=== PATIENT | female | born 1955 | race Caucasian/White ===

== ENCOUNTER → 2016-09-14 | Outpatient (CLI) | payer BC, OTHER ==
[2016-09-14 13:05] LABS: Blood Urea Nitrogen 12 mg/dL (7-17); Non-African American GFR(MDRD) >60 (>60 ml/min/1.73 sqM)
--- NOTE | 2016-09-14 14:27 | XR ---
EXAMINATION TYPE: XR chest 2V DATE OF EXAM: 09/14/2016 COMPARISON: CT abdomen pelvis same date HISTORY: Bladder carcinoma TECHNIQUE: Frontal and lateral views of the chest are obtained. FINDINGS: There is no pleural effusion, or pneumothorax seen. The cardiac silhouette size is small. Prominent lung volumes suggests underlying COPD. Biapical pleural thickening is present. Patient is rotated. Difficult to exclude retrocardiac density. The aorta is dense. The osseous structures are i ntact. IMPRESSION: Rotated exam, probable lower lobe atelectasis
--- NOTE | 2016-09-14 16:12 | CT ---
EXAMINATION TYPE: CT abdomen pelvis w con DATE OF EXAM: 09/14/2016 COMPARISON: 02/15/2016 HISTORY: 61-year-old female f/u for bladder ca, bladder removed 1 year ago TECHNIQUE: Contiguous axial scanning of the abdomen and pelvis following administration of 100 ml Omn ipaque 300 IV contrast. Delayed images through the kidneys and coronal/sagittal reconstructions perf ormed. CT DLP: 229.2 mGycm Automated exposure control for dose reduction was used. FINDINGS: Heart is normal size without pericardial effusion. Strandy atelectasis at the posteromedial left lung base. No pleural effusion. A 5 mm left basilar pulmonary nodule, axially and image 11. This appears unchanged from 02/15/2016. Small hiatal hernia. Stable 1 cm calcification right hepatic dome. Small amount of focal fat along the anterior falciform ligament. Otherwise, no focal liver lesion. Cholecystectomy clips are present. Portal venous system is patent. No biliary ductal dilatation. Adrenal glands, kidneys, spleen, and pancreas appear within normal limits. There is some mesh repair along the epigastric region with a redemonstrated 1.8 cm small omental fat- containing hernia along the right lateral margin of the mesh, axial image 30. Diverticular ostomies are also present along the right mid abdomen with a new fat-containing parastom al hernia is, superiorly measuring 2.7 cm wide and inferiorly measuring 2.5 cm wide. Surgical clips along the iliac chains. No dilated small bowel, free fluid, or free air. No mesenteric or retroperitoneal lymphadenopathy. Moderate arthroscopic calcifications within the abdominal aorta and iliac arteries. Bladder surgically absent. Uterus is also surgically absent. Neither ovary is seen and could be surgi mariama absent or obscured by adjacent bowel loops. No pelvic lymphadenopathy or mass seen. Bones: No osseous destructive process. IMPRESSION: 1. STATUS POST CYSTECTOMY with right mid abdominal urinary diversion/ileal conduit. There is no hydro nephrosis or evidence for urinary obstruction. 2. A 5 mm left basilar pulmonary nodule, stable from 02/15/2016. Continued follow-up recommended recom mended 3. Otherwise, no evidence for locoregional recurrence or metastatic disease.
== END | disposition home or self-care (01) ==
LOC: RADCTMAIN 12:05
PROVIDERS: ATTEND Urology
DX: C67.9 Malignant neoplasm of bladder, unspecified (principal); Z90.49 Acquired absence of other specified parts of digestive tract
CPT/HCPCS: 82565; 84520; 71020; 74177; 36415; Q9967

== ENCOUNTER → 2018-01-28 | Outpatient (CLI) | payer BC ==
[2018-01-28 07:22] LABS: ALT 40 U/L (9-52); AST 21 U/L (14-36); Albumin 4.5 g/dL (3.5-5.0); Alkaline Phosphatase 192 U/L (38-126); Anion Gap 9 mmol/L; Blood Urea Nitrogen 14 mg/dL (7-17); Calcium 9.7 mg/dL (8.4-10.2); Carbon Dioxide 27 mmol/L (22-30); Chloride 107 mmol/L (98-107); Glucose 96 mg/dL (74-99); Potassium 4.4 mmol/L (3.5-5.1); Sodium 143 mmol/L (137-145); Total Bilirubin 0.3 mg/dL (0.2-1.3); Total Protein 7.7 g/dL (6.3-8.2)
--- NOTE | 2018-01-28 09:02 | CT ---
EXAMINATION TYPE: CT abdomen pelvis w con DATE OF EXAM: 01/28/2018 HISTORY: Bladder CA follow up CT DLP: 409mGycm Automated Exposure Control for Dose Reduction was Utilized. CONTRAST: CT scan of the abdomen and pelvis is performed with IV Contrast, patient injected with 100 mL of Isov ue 300. COMPARISON: 02/15/2016 and 09/14/2016 FINDINGS: LUNG BASES: There is a 5 mm pulmonary nodule at the left lung base on image 8. Right lower lobe bleb is incidentally seen. LIVER/GB: Granulomas noted near the hepatic dome in segment IVb of the liver there is a focal wedge-s haped area of hypoattenuation along the fissure for the falciform ligament, most commonly related to focal fatty infiltration. No other hepatic lesions are appreciated. Gallbladder surgically absent. PANCREAS: No significant abnormality is seen. SPLEEN: No significant abnormality is seen. ADRENALS: No significant abnormality is seen. KIDNEYS: Urinary bladder is been surgically removed. Surgical clips are seen within the pelvis and ar ound the anastomotic site from the ureters to the ileal conduit pouch. Distal ileum is decompressed a nd exits the right mid abdominal ostomy without obstruction. No surrounding fluid collection is seen to suggest urinoma or extravasation. No pneumoperitoneum. Minimal right-sided hydroureteronephrosis i s present. Left extrarenal pelvis is seen with no hydronephrosis. Again there is a fat-containing par astomal hernia also containing mesenteric vasculature versus enlarged from the prior now measuring 4. 6 cm and previously measuring 2.5 cm Kidneys enhance and excrete symmetrically. No focal renal lesion is appreciated. BOWEL: No significant abnormality is seen. No dilated large or small bowel. LYMPH NODES: No greater than 1cm abdominal or pelvic lymph nodes are appreciated. OSSEOUS STRUCTURES: No significant abnormality is seen. IMPRESSION: 1. No new findings to suggest metastasis within the abdomen or pelvis or local recurrence. No new burke nopathy. 2. Increased size of the fat and mesenteric vasculature containing parastomal hernia. 3. Stable size of the 5 mm left basilar pulmonary nodule dating back to 2015.
--- NOTE | 2018-01-28 09:29 | XR ---
EXAMINATION TYPE: XR chest 2V DATE OF EXAM: 01/28/2018 COMPARISON: 09/14/2016 TECHNIQUE: PA and lateral views submitted. HISTORY: Bladder cancer FINDINGS: The lungs are clear and there is no pneumothorax, pleural effusion, or focal pneumonia. Hyperinflat ion suggests COPD. Biapical pleural thickening. Hypertrophic change of the spine. Surgical clips in t he abdomen. IMPRESSION: 1. No acute process.
== END ==
LOC: RADCTMAIN 06:30
PROVIDERS: ATTEND Urology
DX: K43.5 Parastomal hernia without obstruction or gangrene (principal); C67.9 Malignant neoplasm of bladder, unspecified
CPT/HCPCS: 80053; 71046; 74177; 36415; Q9967

== ENCOUNTER → 2018-12-27 | Outpatient (CLI) | payer BC ==
--- NOTE | 2018-12-27 09:33 | XR ---
EXAMINATION TYPE: XR chest 2V DATE OF EXAM: 12/27/2018 COMPARISON: 01/28/2018 HISTORY: Shortness of breath TECHNIQUE: Frontal and lateral views of the chest are obtained. FINDINGS: Scattered senescent parenchymal changes noted. Hyperinflation compatible with COPD. No evidence for infiltrate. No evidence for atelectasis. There is a new right upper lobe pulmonary nodule measuring 1.[address] of the chest is recommended for further evaluation to exclude prostatic disease. Heart size is stable. Mediastinal structures are stable and grossly unremarkable. No evidence for hilar prominence. Degenerative changes dorsal spine. IMPRESSION: 1. There is a new right upper lobe pulmonary nodule measuring 1.[address] of the chest is recommended for further evaluation to exclude prostatic disease.
[2018-12-27 10:03] LABS: African American GFR (CKD) >90 (>60 ml/min/1.73 sqM); Blood Urea Nitrogen 13 mg/dL (7-17)
--- NOTE | 2018-12-27 11:27 | CT ---
EXAMINATION TYPE: CT abdomen pelvis w con DATE OF EXAM: 12/27/2018 COMPARISON: 01/28/2018 HISTORY: Follow up per patient CT DLP: 426.2 mGycm CONTRAST: CT scan of the abdomen and pelvis is performed with Oral Contrast and with IV Contrast, patient injec scottie with 100 mL of Isovue 300. FINDINGS: LUNG BASES-: Stable 4 mm left basilar pulmonary nodule unchanged since 2016. No infiltrate. LIVER/GB: Cholecystectomy clips are in place. No space occupying hepatic lesion. Biliary tree is o f normal caliber. PANCREAS: No inflammation. No distinct mass. SPLEEN: No splenic enlargement. No lesion seen. ADRENALS: No nodule. No thickening. KIDNEYS/BLADDER: No hydronephrosis. No nephrolithiasis. No distinct renal mass. Cystectomy changes are noted. Ileal conduit is identified with the ostomy noted. No evidence for hydronephrosis or obst ructive change. BOWEL: Normal appendix. Normal bowel caliber. No inflammation. GENITAL ORGANS: No gross abnormality. LYMPH NODES: No greater than 1cm abdominal or pelvic lymph nodes are appreciated. AORTA: No significant abnormality. OSSEOUS STRUCTURES: No significant abnormality is seen. OTHER: No significant additional abnormality is seen. IMPRESSION: 1. No evidence for metastatic disease at this time. 2. Stable 4 mm left basilar pulmonary nodule unchanged since 2016.
== END | disposition home or self-care (01) ==
LOC: RADCTMAIN 09:02
PROVIDERS: ATTEND Urology
DX: R91.1 Solitary pulmonary nodule (principal); C67.9 Malignant neoplasm of bladder, unspecified; Z88.0 Allergy status to penicillin
CPT/HCPCS: 82565; 84520; 71046; 74177; 36415; Q9967

== ENCOUNTER → 2019-01-04 | Outpatient (CLI) | payer BC ==
--- NOTE | 2019-01-05 08:52 | CT ---
EXAMINATION TYPE: CT chest w con DATE OF EXAM: 01/04/2019 COMPARISON: Chest x-ray 12/27/2018 HISTORY: lung nodule, bladder cancer C 67.9 CT DLP: 103.3 mGycm, Automated exposure control for dose reduction was used. CONTRAST: Performed injected with 100 mL of Isovue 300. TECHNIQUE: Axial images were obtained at 5 mm thick sections. Reconstructed images are reviewed on [employer] computer in the coronal plane. FINDINGS: Portion of the thyroid visualized is normal. Moderate emphysematous changes are present. There is a nodule within the periphery of the right midlung measuring 1.4 cm in diameter. Series 4 im age 33. This has irregular borders and is suspicious for neoplasm. This potentially has central cavit ation. No enlarged mediastinal or hilar adenopathy is evident. The ascending aorta diameter at the level o f the main pulmonary artery is 2.8 cm. The main pulmonary artery diameter at the bifurcation is 0.[address] sections are obtained through the upper abdomen. There is calcification within the right l obe liver. IMPRESSIONS: 1. Solitary suspicious nodule right midlung. Workup for metastatic or primary neoplasm is recommended .
== END | disposition home or self-care (01) ==
LOC: RADCTMAIN 08:15
PROVIDERS: ATTEND Urology
DX: C67.9 Malignant neoplasm of bladder, unspecified (principal); Z88.0 Allergy status to penicillin; Z88.5 Allergy status to narcotic agent
CPT/HCPCS: 71260; Q9967

== ENCOUNTER → 2019-01-18 | Outpatient (CLI) | payer BC ==
--- NOTE | 2019-01-20 06:42 | PE ---
EXAMINATION TYPE: PET CT fusion skull to thigh DATE OF EXAM: 01/18/2019 COMPARISON: Chest CT January 04, 2019. CT abdomen and pelvis December 27, 2018 and older CTs HISTORY: History of bladder cancer treated 2016 presents with new lung mass. TECHNIQUE: Following the intravenous administration of 10.07 mCi of F-18 FDG, whole body images are performed from the skull base to the midthigh. Images are reviewed on the computer in the coronal, a xial, and sagittal planes. Reconstructed rotating images are created on independent workstation and reviewed on the computer. A noncontrast CT is performed in conjunction with the PET scan. SCAN: Initial Scan FINDINGS: SKULL BASE AND NECK: No areas of suspicious hypermetabolic uptake. CHEST, MEDIASTINUM, AND HILAR REGION: Background fairly moderate underlying emphysematous change rede monstrated most prominent involving the bilateral upper lobes. Redemonstration of thick-walled cavita ry lesion right mid lung anteriorly measuring 1.1 cm axial image 104 not significantly changed from p rior study with hypermetabolic uptake, max SUV is 3.75. No additional areas of suspicious hypermetabo lic uptake are present. ABDOMEN AND PELVIS: Normal excretion is seen. Diffuse right-sided bowel uptake through level of right lower quadrant ostomy noted. Focus of hypermetabolic uptake axial image 234 at level of rectum, where there is prominent soft tiss ue either on basis of mass versus poor distention, max SUV is 7.08. No areas of abnormal hypermetabol ic uptake are otherwise seen. OSSEOUS STRUCTURES: No areas of suspicious hypermetabolic uptake. OTHER CT: Coronary artery calcifications are present which is noted marked underlying coronary artery disease. Single focal calcification right hepatic dome image 131. Cholecystectomy clips. Moderate calcified pl aque of the aorta extends into iliac branch vessels. Surgical clips along the iliac chains bilaterall y. Bladder is surgically absent. IMPRESSION: Some hypermetabolic uptake in 1.1 cm cavitary right mid lung nodule worrisome for neoplas m. Hypermetabolic uptake at level of rectum cannot exclude neoplasm at this level. Correlation with p hysical exam and colonoscopy advised.
== END | disposition home or self-care (01) ==
LOC: RADPETMAIN 09:38
PROVIDERS: ATTEND Internal Medicine Critical Care Medicine
DX: R91.1 Solitary pulmonary nodule (principal)
CPT/HCPCS: 78815; A9552

== ENCOUNTER → 2019-02-13 | Outpatient (CLI) | payer BC | END | disposition home or self-care (01) | LOC: LABPAT 12:15 | PROVIDERS: ATTEND Thoracic Surgery (Cardiothoracic Vascular Surgery) | DX: Z53.9 Procedure and treatment not carried out, unspecified reason (principal) ==

== ENCOUNTER → 2019-02-19 | Outpatient (CLI) | payer BC ==
[2019-02-19 12:26] LABS: INR 0.9 (<1.2); Prothrombin Time 9.5 sec (9.0-12.0)
[2019-02-19 12:37] LABS: African American GFR (CKD) >90 (>60 ml/min/1.73 sqM); Anion Gap 7 mmol/L; Blood Urea Nitrogen 12 mg/dL (7-17); Carbon Dioxide 26 mmol/L (22-30); Chloride 105 mmol/L (98-107); Glucose 90 mg/dL (74-99); Potassium 4.7 mmol/L (3.5-5.1); Sodium 138 mmol/L (137-145)
[2019-02-19 12:43] LABS: Basophils % (A) 1 %; Eosinophils # (A) 0.1 k/uL (0-0.7); Eosinophils % (A) 1 %; HGB 13.1 gm/dL (11.4-16.0); Lymphocytes # (A) 1.6 k/uL (1.0-4.8); Lymphocytes % (A) 32 %; MCH 32.5 pg (25.0-35.0); MCHC 33.6 g/dL (31.0-37.0); Mean Platelet Volume 5.9; Monocytes # (A) 0.2 k/uL (0-1.0); Monocytes % (A) 4 %; Neutrophils # (A) 3.1 k/uL (1.3-7.7); Neutrophils % (A) 61 %; Platelet Count 263 k/uL (150-450); RBC 4.03 m/uL (3.80-5.40); RDW 13.6 % (11.5-15.5); WBC 5.1 k/uL (3.8-10.6)
[2019-02-19 12:47] LABS: MCV 96.9 fL (80.0-100.0)
== END | disposition home or self-care (01) ==
LOC: LABPAT 11:28
PROVIDERS: ATTEND Thoracic Surgery (Cardiothoracic Vascular Surgery)
DX: Z01.812 Encounter for preprocedural laboratory examination (principal); R91.1 Solitary pulmonary nodule
CPT/HCPCS: 80051; 82565; 82947; 84520; 85025; 85610; 85730

== ENCOUNTER 2019-02-27 07:30 | Inpatient (IN) | payer BC ==
[2019-02-26 10:10] VITALS: BMI 19.3
[~2019-02-27 07:30] MED LIST: DEXAMETHASONE SOD PHOSPHATE 10 MG/ML 1 ML VIAL IV ONE; LACTATED RINGERS 1,000 ML IV SCH; LIDOCAINE 1% 20 ML VIAL (10MG/ML) FOR IV START INTRADERMA PRN; MIDAZOLAM 2 MG/2 ML VIAL IV PRN; Pre Op ABX Message 1 EACH MISC MISCELLANE ONE
[2019-02-27] MEDS ORDERED: ONDANSETRON 4 MG/2 ML VIAL IVP ONE (08:28)
[2019-02-27] MEDS: fentaNYL (PF) 50 MCG/ML 2 ML AMP IVP PRN ×3 (08:53→09:06)
[2019-02-27] MEDS: CLINDAMYCIN 600 MG in DEXTROSE 5% IN WATER 50 ML IVPB STA ×4 (09:19→09:51)
[2019-02-27] MEDS ORDERED: BUPIVACAINE (PF) 0.5% 30 ML VIAL SQ ONE ×2 (09:52)
[2019-02-27] MEDS ORDERED: ROCURONIUM BROMIDE 10 MG/ML 10 ML VIAL IV ONE (10:14)
[2019-02-27] MEDS ORDERED: GLYCOPYRROLATE 0.2 MG/ML 2 ML VIAL ONE (10:14)
[2019-02-27] MEDS ORDERED: SUCCINYLCHOLINE CHLORIDE 100 MG/5 ML SYR IV ONE (10:14)
[2019-02-27] MEDS ORDERED: PROPOFOL 10 MG/ML 20 ML VIAL IV ONE (10:14)
[2019-02-27] MEDS ORDERED: NEOSTIGMINE 1 MG/ML 10 ML VIAL ONE (10:14)
[2019-02-27] MEDS ORDERED: LIDOCAINE 1% INJ 10MG/ML (20 ML MDV) ONE (10:14)
[2019-02-27] MEDS ORDERED: diphenhydrAMINE 50 MG/ML 1 ML VIAL IVP STA (10:35)
--- NOTE | 2019-02-27 10:36 | P.OP ---
Date of Procedure: 02/27/19 Preoperative Diagnosis: Mass right middle lobe Postoperative Diagnosis: Same Procedure(s) Performed: Thoracoscopic wedge resection mass right middle lobe Anesthesia: CARLOS Surgeon: Balaji Ordonez Animal Care Attendant #1: Trevon Richards Estimated Blood Loss (ml): 5 IV fluids (ml): 200 Pathology: other (Wedge resection for culture and pathology) Condition: stable Disposition: PACU Indications for Procedure: 63-year-old female with history of bladder cancer and cervical cancer presents with a new mass in the right middle lobe. She also has a history of rheumatoid arthritis. This mass is increased slightly over serial CT scans. She is ref erred for resection for diagnosis. Needle biopsy was nondiagnostic. Operative Findings: Proximally 1 cm mass fairly deep in the right middle lobe lateral segment. Generous wedge resection was performed. Specimen was cut on the back table. Portion was sent for tissue culture and the remainder for path. Description of Procedure: The patient was brought to the operating room, placed supine on the operating table, anesthetized and intubated with a double-lumen endotracheal tube. Tube was positioned with fiberoptic bronchoscopy. The tube was secured and the patient turned in the left lateral decubitus position. The right chest sterilely prepped and draped. 3 one-inch incisions were made in the right chest carried into the pleural space. The right lung was deflated. Right middle lobe was palpated and we could palpate the mass fairly deep in the lateral segment of the middle lobe. A generous wedge resection was performed with multiple firings of Endo SYLVAIN stapler. Great care was taken to be deep to the mass. On completing the wedge resection specimen was placed in an Endo Catch bag and brought onto the table. It was cut on the back table and the mass was noted and was distant from the staple line. A small portion was sent for culture and the remainder for pathology. Attention was redirected to the chest. Staple line w as intact. 28-Kosovan chest tube was placed through separate stab incision anteriorly and positioned posterior apically. The lung was reinflated under thoracoscopic vision. Rib blocks were performed at the level of the incisions posteriorly with half percent Marcaine. Incisions were closed with layers of Vicryl. Skin glue and dry sterile dressings were applied. On removing the drapes it was noted that the skin was quite erythematous wherever the prep was. We generously washed off all the prep. Patient will be given Benadryl. Patient was extubated and transferred to recovery in stable condition.
[2019-02-27] MEDS: HYDROmorphone 0.5 MG/0.5 ML SYRINGE IVP PRN ×3 (10:48→12:34)
--- NOTE | 2019-02-27 11:19 | XR ---
EXAMINATION TYPE: XR chest 1V portable DATE OF EXAM: 02/27/2019 COMPARISON: Prior chest dated 12/27/2018 HISTORY: Status post wedge resection TECHNIQUE: Single frontal view of the chest is obtained. FINDINGS: Right-sided chest tube is in place. Minimal apical pneumothorax is present. Parenchymal in creased density in the right mid lung is likely due to atelectatic changes, postop change, there are multiple surgical clips present. Patchy density also present at the left costophrenic angle. Heart is stable. Aorta is dense. There are overlying cardiac leads. IMPRESSION: Satisfactory postoperative chest x-ray.
[2019-02-27] MEDS ORDERED: IPRATROPIUM-ALBUTEROL 3 ML NEB IH PRN (14:43)
[2019-02-27] MEDS ORDERED: ONDANSETRON 4 MG/2 ML VIAL IVP PRN (14:43)
[2019-02-27] MEDS ORDERED: DEXTROSE 5%-0.45% NACL 1,000 ML IV SCH (14:43)
[2019-02-27] MEDS: CLINDAMYCIN 900 MG in DEXTROSE 5% IN WATER 50 ML IVPB SCH ×4 (15:48→23:25)
[2019-02-27] MEDS: HEPARIN SODIUM,PORCINE 5,000 UNIT/ML 1 ML VIAL SQ SCH ×2 (15:59→23:26)
[2019-02-27] MEDS: KETOROLAC 30 MG/ML 1 ML VIAL IVP SCH ×2 (15:59→23:26)
[2019-02-27] MEDS: traMADol 50 MG TAB PO SCH ×2 (16:00→23:25)
[2019-02-27] MEDS ORDERED: diphenhydrAMINE 50 MG/ML 1 ML VIAL IVP PRN (16:35)
[2019-02-27] MEDS: IPRATROPIUM-ALBUTEROL 3 ML NEB IH SCH ×3 (17:45→19:41)
[2019-02-27] MEDS ORDERED: ALPRAZolam 0.5 MG TAB PO SCH (21:00)
[2019-02-27] MEDS ORDERED: DULoxetine HCL 60 MG CAPSULE.DR PO SCH (21:30)
[2019-02-28 01:13] VITALS: RESP 18
[2019-02-28] MEDS: KETOROLAC 30 MG/ML 1 ML VIAL IVP SCH ×2 (05:58→11:23)
[2019-02-28] MEDS: traMADol 50 MG TAB PO SCH ×2 (05:58→11:23)
[2019-02-28 06:58] LABS: Basophils # (A) 0.1 k/uL (0-0.2); Basophils % (A) 1 %; Eosinophils % (A) 0 %; HCT 33.1 % (34.0-46.0); Lymphocytes % (A) 16 %; MCH 32.2 pg (25.0-35.0); MCHC 33.1 g/dL (31.0-37.0); MCV 97.4 fL (80.0-100.0); Monocytes # (A) 0.4 k/uL (0-1.0); Monocytes % (A) 6 %; Neutrophils % (A) 77 %; Platelet Count 196 k/uL (150-450); RDW 13.6 % (11.5-15.5); WBC 6.5 k/uL (3.8-10.6)
[2019-02-28 07:12] LABS: Calcium 8.4 mg/dL (8.4-10.2)
[2019-02-28] MEDS ORDERED: PANTOPRAZOLE 40 MG TABLET PO SCH (07:30)
[2019-02-28] MEDS: HEPARIN SODIUM,PORCINE 5,000 UNIT/ML 1 ML VIAL SQ SCH (07:48)
[2019-02-28] MEDS: ACETAMINOPHEN TAB 500 MG TAB PO PRN ×2 (07:49→13:46)
[2019-02-28] MEDS: CLINDAMYCIN 900 MG in DEXTROSE 5% IN WATER 50 ML IVPB SCH ×2 (07:49)
--- NOTE | 2019-02-28 07:49 | XR ---
EXAMINATION TYPE: XR chest 1V DATE OF EXAM: 02/28/2019 COMPARISON: Prior chest x-ray 02/27/2019 HISTORY: Chest tube TECHNIQUE: Single frontal view of the chest is obtained. FINDINGS: Right-sided chest tube remains in place, parenchymal changes in the right midlung are juan j lar. Minimal apical pneumothorax present on the right. Subsegmental atelectatic changes suspected on the left. Heart is stable. Aorta is dense. IMPRESSION: Similar postoperative findings.
[2019-02-28] MEDS ORDERED: DULoxetine HCL 60 MG CAPSULE.DR PO SCH (09:00)
[2019-02-28] MEDS ORDERED: FOLIC ACID 1 MG TAB PO SCH (09:00)
[2019-02-28] MEDS: IPRATROPIUM-ALBUTEROL 3 ML NEB IH SCH ×2 (09:04→12:58)
--- NOTE | 2019-02-28 10:49 | P.PN ---
Subjective Progress Note Date: 02/28/19 Principal diagnosis: Mass right middle lobe. Previous medical history of cervical carcinoma as well as bladder cancer status post total cystectomy, current tobacco dependence, cor onary artery disease, hyperlipidemia, family history of premature coronary artery disease, fibromyalgia, rheumatoid arthritis POD #1 thoracoscopic wedge resection of mass right middle lobe Patient is currently sitting up in a recliner in no acute distress. Denies pain, shortness of breath. There was no air leak in her right pleural chest tube this morning, discontinued without incident. Patient has been ambulatory without difficulty. No new complaints. Objective - Vital Signs Vital signs: Vital Signs Temp 98.2 F 02/28/19 07:58 Pulse 88 02/28/19 09:20 Resp 18 02/28/19 07:58 BP 125/60 02/28/19 07:58 Pulse Ox 98 02/28/19 07:58 Intake & Output 02/27/19 02/28/19 02/28/19 18:59 06:59 18:59 Intake Total 2088 360 Output Total 515 530 15 Balance 1573 -530 345 Weight 49.895 kg 52.8 kg Intake: IV 1254 Oral 834 360 Output: Chest Tube Drainage 5 15 Right 5 15 Drainage 60 Right Anterior Medial 60 Chest Urine 450 525 Estimated Blood Loss 5 - Constitutional General appearance: Present: cooperative, no acute distress - Respiratory Details: Lungs sounds diminished bilaterally. Respirations even, nonlabored. Currently on room air with oxygen saturation 98%. Able to achieve 1000 mL on her incentive spirometry. Strong cough. Right pleural chest tube was placed to waterseal last night, 5 mL serosanguineous drainage overnight, 100 mL since surgery, no air leak was present and the chest tube was discontinued this morning. - Cardiovascular Details: S1, S2 present. Regular rate and rhythm, sinus rhythm on telemetry. Palpable peripheral pulses bilaterally. No edema present. No calf pain or tenderness noted. SCDs present. - Gastrointestinal Gastrointestinal Comment(s): Abdomen soft, nontender, nondistended. Active bowel sounds 4 quadrants. Tolerating diet. - Genitourinary Genitourinary Comment(s): Continues to void per ostomy - Integumentary Integumentary Comment(s): Skin is warm and dry with evidence of good perfusion. Right lateral wall chest incisions well approximated and covered with dry intact bandages - Neurologic Neurologic: Present: CNII-XII intact - Musculoskeletal Musculoskeletal: Present: gait normal, strength equal bilaterally - Psychiatric Psychiatric: Present: A&O x's 3, appropriate affect, intact judgment & insight - Allied health notes Allied health notes reviewed: nursing - Labs CBC & Chem 7: 02/28/19 05:54 02/28/19 05:54 Labs: Abnormal Lab Results - Last 24 Hours (Table) 02/28/19 02/28/19 Range/Units 05:54 05:54 RBC 3.40 L (3.80-5.40) m/uL Hgb 11.0 L (11.4-16.0) gm/dL Hct 33.1 L (34.0-46.0) % Sodium 135 L (137-145) mmol/L BUN 20 H (7-17) mg/dL Glucose 111 H (74-99) mg/dL Microbiology - Last 24 Hours (Table) 02/27/19 10:04 Acid Fast Bacilli Smear - Final Lung - Right Acid Fast Bacilli Culture - Preliminary 02/27/19 10:04 Gram Stain - Preliminary Lung - Right Tissue Culture - Preliminary 02/27/19 10:04 Fungal Culture - Preliminary Lung - Right - Imaging and Cardiology Chest x-ray: report reviewed, image reviewed Assessment and Plan Assessment: 1. Mass right middle lobe, status post thoracoscopic wedge resection 2. History of cervical carcinoma as well as bladder cancer status post total cystectomy 3. Current tobacco dependence 4. Coronary artery disease 5. Hyperlipidemia 6. Family history of premature coronary artery disease 7. Fibromyalgia 8. Rheumatoid arthritis Plan: 1. Will repeat chest x-ray around 11:30. If stable will discharge to home 2. Discharge instructions placed on discharge planning with follow-up appointment for Dr. Ordonez 3. Encourage smoking cessation 4. Encourage incentive spirometry use 5. Increase activity, ambulate as tolerated 6. More recommendations to follow Time with Patient: Greater than 30
[2019-02-28 12:10] VITALS: BP 125/59; PULSE 70; TEMP 97.9
--- NOTE | 2019-02-28 12:14 | CONS ---
CONSULTATION PULMONARY/CRITICAL CARE CONSULTATION: DATE OF CONSULTATION: 02/28/2019 This is a very pleasant 63-year-old female who sees Dr. De La Torre as a primary and my partner Dr. Diego as her lung doctor. The patient was admitted to the hospital on 02/27 and underwent a thoracoscopic wedge resection of the right middle lobe lesion. The wedge resection was sent to Pathology for evaluation. She has a history of bladder cancer and cervical cancer and she presented with a new mass in the right middle lobe. She does have a history of rheumatoid arthritis as well. The mass had apparently increased slightly with serial CT scanning and a resection was requested for diagnosis. A needle biopsy was apparently nondiagnostic. Currently, the patient is resting comfortably. She is postop day #1. She denies any shortness of breath or difficulty breathing. She has only minimal chest pain. Chest tubes were removed earlier today. . HOME MEDICATIONS: Include methotrexate, folic acid, Cymbalta, Xanax, and Tylenol. ALLERGIES: HYDROCODONE and PENICILLIN. MEDICAL HISTORY: Positive for bladder cancer and cervical cancer, as well as a history of rheumatoid arthritis and hyperlipidemia. SURGICAL HISTORY: Includes primarily remote procedures both for her bladder cancer and cervical cancer. SOCIAL HISTORY: Positive for previous tobacco use. OCCUPATIONAL HISTORY: Noncontributory. FAMILY HISTORY: Positive for healthy parents, one of which she believes her father had high blood pressure. REVIEW OF SYSTEMS: CONSTITUTIONAL: Negative. NEUROLOGIC: Negative. HEENT: Negative. CARDIOVASCULAR: Negative. PULMONARY: Pulmonary nodule. GI: Negative. : Negative. RHEUMATOLOGIC: Negative. IMMUNOLOGIC: Negative. ENDOCRINOLOGIC: Negative. DERMATOLOGIC: Negative. Current vital signs include a temperature 98.2, heart rate 72, respiratory rate 18, blood pressure 125/60 mean 81, room air saturation 98%. She appears in no acute distress. HEENT: Examination is grossly unremarkable. Mucous membranes are moist. No oral lesions. NECK: Supple. Full range of motion. No adenopathy or thyromegaly. Neck veins are flat. CARDIOVASCULAR: Examination reveals regular rhythm and rate. S1, S2 normal. No murmur. LUNGS: Reveal clear breath sounds. No wheezes, rhonchi, or crackles. Breath sounds are equal bilaterally. ABDOMEN: Soft. Bowel sounds are heard. EXTREMITIES: Intact. No cyanosis, clubbing, or edema. SKIN: Without rash. NEUROLOGIC: Examination is brief but nonfocal. LABS: Reviewed. White count 6.5, hemoglobin 11, hematocrit 33.1, platelet count 196,000. Sodium 135, potassium chloride 104, CO2 is 26. BUN and creatinine were 20 and 0.85. Calcium 8.4. A chest x-ray done today shows a right-sided chest tube. This is obviously before the chest tube was removed, but showed a right-sided chest tube. Some parenchymal changes in the right mid lung and a minimal apical pneumothorax on the right side. The left lung was relatively clear. ASSESSMENT: 1. Postoperative day #1, status post thoracoscopic wedge resection, right middle lobe nodule. 2. History of cervical carcinoma. 3. Bladder cancer, status post cystectomy. 4. History of previous tobacco use. 5. History of coronary artery disease. 6. Hyperlipidemia. 7. Family history of premature coronary artery disease. 8. Fibromyalgia. 9. Rheumatoid arthritis. PLAN: The patient is doing well. Chest tube was removed. We recommend deep breathing, coughing, clearing of secretions. We also recommend hourly use of the incentive spirometer. The patient is otherwise doing well. She could be potentially discharged home in the next 24-48 hours. She needs to follow up with Dr. Diego. She should also follow up with Dr. De La Torre. I am sure she will have follow up with Cardiothoracic Surgery. No additional recommendations are made. Will continue to follow. MMCRYSTALL / YONISN: [id number] /
--- NOTE | 2019-02-28 14:05 | XR ---
EXAMINATION TYPE: XR chest 2V DATE OF EXAM: 02/28/2019 COMPARISON: Prior chest x-ray 02/28/2019 and earlier time HISTORY: Chest tube removal TECHNIQUE: Frontal and lateral views of the chest are obtained. FINDINGS: There is been interval removal of patient's right-sided chest tube. No other significant i nterval change. IMPRESSION: No evident complication status post chest tube removal.
--- NOTE | 2019-02-28 14:10 | P.DS ---
Providers Date of admission: 02/27/19 07:36 Expected date of discharge: 02/28/19 Attending physician: Balaji Ordonez Consults: 02/27/19 14:43 Consult Physician Routine Consulting Provider: Fernando Dickerson Consult Reason/Comments: known to Brandie Do you want consulting provider notified?: Yes [facility] [place] [facility] Course: FINAL DIAGNOSIS: 1. Mass right middle lobe 2. History of cervical carcinoma as well as bladder cancer, status post total cystectomy 3. Current tobacco dependence 4. Coronary artery disease 5. Hyperlipidemia 6. Family history of premature coronary artery disease 7. Fibromyalgia 8. Rheumatoid arthritis PRINCIPAL PROCEDURE: 1. Thoracoscopic wedge resection of mass, right middle lobe HISTORY OF PRESENT ILLNESS: This is a 63-year-old female who follows on an outpatient basis with Dr De La Torre and Dr Diego. She had undergone total cystectomy with ileal conduit for stage I bladder carcinoma. So far her follow- up has been negative for any recurrence in the abdomen or pelvis. She had, however, developed a new pulmonary nodule by chest x-ray. Computed tomography scan was completed demonstrating 1.3 cm cavitary mass in the right middle lobe peripherally. Follow-up PET scan was completed demonstrating uptake within the mass without evidence of metastasis with an SUV around 4. She continued to be an active smoker. The patient was referred to Dr. Ordonez from cardiothoracic surgery. She was recommended to undergo thoracoscopic wedge resection of the right middle lobe mass, with plans for staged lobectomy if the mass proved to be malignant. The usual perioperative course was discussed in detail with the patient and her family, all risks and benefits were explained, all questions were answered, and consent was obtained to proceed with surgery. The patient was scheduled for surgery at the earliest possible date. HOSPITAL COURSE: The patient was brought to the hospital on 02/27/2019, taken to the preoperative area, prepared in the usual fashion, and subsequently taken to the operating room where Dr. Ordonez performed a thoracoscopic wedge resection of the right middle lobe mass. Upon completion of surgery the patient was extubated and taken to the recovery room for further monitoring. She was eventually admitted to 3 S. cardiac stepdown. On the night of surgery there was no air leak and her chest tube and it was placed to waterseal. Postop day #1 she continued to have no air leak, chest x-ray was stable, and right pleural chest tube was discontinued without incident. Follow-up chest x-ray was stable. Her oxygen was titrated down, she was tolerating oral diet, her pain was controlled, and she was ready to be discharged to home on postoperative day #. She received written and verbal instruction regarding her medications, activity restrictions, signs and symptoms requiring physician notification, and follow-up appointments. COMPLICATIONS: The patient experienced no postoperative complications. Patient Condition at Discharge: Stable Plan - Discharge Summary Discharge Rx Participant: No New Discharge Prescriptions: New Acetaminophen Tab [Tylenol] 1,000 mg PO Q6HR PRN tab PRN Reason: Fever and/ or Mild Pain Continue Methotrexate Sodium [Methotrexate] 12.5 mg PO SA Folic Acid 1 mg PO DAILY DULoxetine HCL [Cymbalta] 60 mg PO DAILY ALPRAZolam [Xanax] 0.5 mg PO HS Discharge Medication List ALPRAZolam [Xanax] 0.5 mg PO HS 02/26/19 [History] DULoxetine HCL [Cymbalta] 60 mg PO DAILY 02/26/19 [History] Folic Acid 1 mg PO DAILY 02/26/19 [History] Methotrexate Sodium [Methotrexate] 12.5 mg PO SA 02/26/19 [History] Acetaminophen Tab [Tylenol] 1,000 mg PO Q6HR PRN tab 02/28/19 [Rx] Follow up Appointment(s)/Referral(s): Valeria Nichols NPC [Nurse Practitioner] - 03/21/19 3:00 pm Balaji Ordonez MD [STAFF PHYSICIAN] - 03/13/19 1:15 pm Nikki De La Torre MD [Primary Care Provider] - As Needed Activity/Diet/Wound Care/Special Instructions: DISCHARGE INSTRUCTIONS: 1. No driving for 2 weeks, or until physician gives their ok. 2. No lifting, pushing, or pulling more than 10 pounds for 2 weeks. The physician will advise of any restriction changes. 3. Continue pain control per as needed orders. Alternate acetaminophen (Tylenol) and ibuprofen (Motrin/Advil) for pain. 4. Continue with incentive spirometry and splinting until otherwise directed by the physician. 5. Leave chest tube dressing for 48 hours. After that, remove all dressings and shower daily. 6. Routine incision care. No powders, lotions, ointments on incisions. 7. Please call surgeon/AUTO BODY BUILDER APPRENTICE for temp greater than 101 F or purulent drainage from incisions. Rhoda [employer]O B[employer] BUILDER APPRENTICE ; Naif [employer] BUILDER APPRENTICE Discharge Disposition: HOME SELF-CARE
[2019-03-01] MEDS ORDERED: METHOTREXATE SODIUM 2.5 MG TAB PO SCH (09:00)
== END 2019-02-28 14:45 | disposition home or self-care (01) | DRG 168 ==
LOC: 2ORMAIN 07:36 → 3SCARD 13:52
PROVIDERS: ADMIT Thoracic Surgery (Cardiothoracic Vascular Surgery); ATTEND Thoracic Surgery (Cardiothoracic Vascular Surgery)
PROC: 0BBD4ZX Excision of Right Middle Lung Lobe, Percutaneous Endoscopic Approach, Diagnostic (ICD-10-PCS; principal; 2019-02-27 09:15)
DX: C34.2 Malignant neoplasm of middle lobe, bronchus or lung (principal); F17.210 Nicotine dependence, cigarettes, uncomplicated; Z85.51 Personal history of malignant neoplasm of bladder; Z85.41 Personal history of malignant neoplasm of cervix uteri; E78.5 Hyperlipidemia, unspecified; I25.10 Atherosclerotic heart disease of native coronary artery without angina pectoris; M06.9 Rheumatoid arthritis, unspecified; M79.7 Fibromyalgia; Z82.49 Family history of ischemic heart disease and other diseases of the circulatory system; Z90.6 Acquired absence of other parts of urinary tract; Z88.5 Allergy status to narcotic agent; Z88.0 Allergy status to penicillin
CPT/HCPCS: 36415; 71045; 71046; 80048; 85025; 86850; 86900; 86901; 87070; 87102; 87116; 87205; 87206; 88307; 88342; 94640